=== PATIENT | female | born 1995 | race Caucasian/White ===

== ENCOUNTER 2020-03-30 18:37 | Emergency (ER) | payer OTHER, SELFPAY ==
[2020-03-30 18:42] VITALS: BP 146/75; PULSE 95; RESP 16; TEMP 36.4; O2SAT 96; BMI 43.0
--- NOTE | 2020-03-30 19:40 | ED.WOUNDLAC ---
HPI - Wound/Laceration <ALTAF GeorgeP - Last Filed: 03/30/20 20:51> General Chief Complaint: Wound/Laceration Stated Complaint: LEFT HAND THUMB CUT Time Seen by Provider: 03/30/20 19:11 Source: patient Mode of arrival: Ambulatory Limitations: no limitations History of Present Illness HPI narrative: This is a 24-year-old male, former smoker, who has no contributory medical history presents to ED with left thumb of avulsion injury from a clean kitchen knife when he was preparing dinner and chopping peppers. 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 Patient reports difficulty controlling bleeding so he decided to come into ED. He had used several paper towel and direct pressure to stop the bleeding and final has stopped while he is waiting to be seen. He is right dominant hand. Review of Systems <CAROL George - Last Filed: 03/30/20 20:51> Review of Systems Narrative: General: Denies fever, chills, fatigue, malaise, sweats. Respiratory: Denies dyspnea, cough, wheezing, hemoptysis, sputum. Cardiovascular: Denies chest pain, palpitations, orthopnea, edema. Musculoskeletal: Denies weakness, joint pain or bony pain. Skin: See HPI Patient History <CAROL George - Last Filed: 03/30/20 20:51> Social History Smoking Status: Former smoker Smoking Status: Former smoker alcohol intake frequency: 0-2 drinks per day Substance Use Type: does not use Exam <CAROL George Last Filed: 03/30/20 20:51> Narrative Exam Narrative: General appearance: well developed, well nourished, in no acute distress. Head: normocephalic, atraumatic, no scalp lesions, non-tender. ENT: Hearing grossly intact. Nose without bleeding, purulent discharge. Airway patent. Neck/Thyroid: neck supple, full range of motion, no visible masses or meningeal signs. No JVD, non-tender without lymphadenopathy. Skin: About 1 cm diameter avulsion on left thumb pad actively bleeding when the pressure dressing with paper towel removed after got it wet. Warm and dry and appropriate color for ethnicity. Heart: no clubbing, no cyanosis, no edema. Lungs: Breathing even and unlabored. No stridor. No accessory muscles used. Able to speak in full sentences. Chest: normal shape and expansion. Abdomen: non-obese, non-distended. Neurologic: alert and oriented. Cognitive exam, RELOCATION COUNSELOR and PNS grossly intact on informal exam. Psych: good eye contact, normal affect. Initial Vital Signs Initial Vital Signs: Vital Signs Temperature 97.5 F L 03/30/20 18:42 Pulse Rate 95 H 03/30/20 18:42 Respiratory Rate 16 03/30/20 18:42 Blood Pressure 146/75 H 03/30/20 18:42 Pulse Oximetry 96 03/30/20 18:42 <Chace Thapa DO - Last Filed: 03/30/20 21:50> Initial Vital Signs Initial Vital Signs: Vital Signs Temperature 97.5 F L 03/30/20 18:42 Pulse Rate 95 H 03/30/20 18:42 Respiratory Rate 16 03/30/20 18:42 Blood Pressure 146/75 H 03/30/20 18:42 Pulse Oximetry 96 03/30/20 18:42 Scores <CAROL George - Last Filed: 03/30/20 20:51> GCS [place] coma scale eye opening: Spontaneous [place] coma scale verbal response: Orientated [place] coma scale motor response: Obey commands [place] coma scale total score: 15 Course <CAROL George - Last Filed: 03/30/20 20:51> Vital Signs Vital signs: Vital Signs - 8 hr 03/30/20 18:42 Temperature 97.5 F L Pulse Rate 95 H Respiratory Rate 16 Blood Pressure 146/75 H Pulse Oximetry 96 <DO Sendy Welch Last Filed: 03/30/20 21:50> Vital Signs Vital signs: Vital Signs - 8 hr 03/30/20 18:42 Temperature 97.5 F L Pulse Rate 95 H Respiratory Rate 16 Blood Pressure 146/75 H Pulse Oximetry 96 [facility] - Wound/Laceration <CAROL George - Last Filed: 03/30/20 20:51> Differential Diagnosis Differential diagnosis: Likely avulsion of skin Medical Records Attestation: I reviewed the patient's medical records. 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 patient's wound rib bled after dry kitchen towel was removed gently. Wound was soaked in Hibiclens water for 10 minutes and applied Surgifoam dressing with direct pressure which stopped bleeding. Patient advised monitor for signs and symptoms for infection reminded to be gentle with the surgeon form dressing when he attempts to remove this in next 2-3 days. Patient advised to use [id number]-velobin antibiotic ointment on it after the surgiforam is removed. Patient advised to follow-up with his [employer] to follow-up with tetanus vaccination. Patient verbalized understanding in agreement with the treatment plan. Discharge Plan Departure Patient Disposition: Home Clinical Impression: Avulsion of skin Discharge Date/Time: 03/30/20 20:27 Instructions: DI for Avulsion Laceration (Not Requiring Sutures) Activity Restrictions/Additional Instructions: You have been diagnosed with [left non dominant hand thumb pad avulsion injury which was treated with surgifoam dressing.]. What to do: *Take your medications as directed. You can take [id number] Tylenol and or Motrin as needed for discomfort. Please be gentle with surgery form dressing to prevent rib bleeding specially when you try to remove this. After dressing is removed, he can use [id number] antibiotic ointment on affected site to prevent infection. *Follow up with your primary care provider in 2-3 days, call for an appointment. Let them know you were seen in the ED and that we asked you to be seen in follow up. Please follow-up with your emt/dispatcher on tetanus immunization tomorrow. *Return to ED if you have any new, worsening, or concerning symptoms, such as [worsening pain, increasing redness/warmth/swelling on affected injury, fever, or purulent discharge, chest pain, breathing difficulty, or any acute concerns]. Referrals: [facility] [Outside] <Chace Thapa, DO - Last Filed: 03/30/20 21:50> Cosign ED Attending Cossylviaature Attestation: Dr Thapa Co-Sign Statement: I was available for consultation during this patient's emergency department visit. This chart is signed by myself for administrative purposes only. I did not have direct contact with this patient during this visit. They were seen independently by the APC.
== END 2020-03-30 20:27 | disposition home or self-care (01) ==
PROVIDERS: Emergency Provider Nurse Practitioner Family
DX: S61.012A Laceration without foreign body of left thumb without damage to nail, initial encounter (principal); W26.0XXA Contact with knife, initial encounter
CPT/HCPCS: 99281